=== PATIENT | female | born 1995 | race African-American/Black ===

== ENCOUNTER 2016-11-24 11:50 | Emergency (ER) | payer MEDICAID ==
[~2016-11-24] VITALS: Ht 162.6 cm; Wt 74.8 kg
== END 2016-11-24 14:05 | disposition left against medical advice (07) ==
LOC: CED 11:50
DX: Z53.21 Procedure and treatment not carried out due to patient leaving prior to being seen by health care provider (principal)

== ENCOUNTER 2016-11-24 19:58 | Emergency (ER) | payer MEDICAID ==
[~2016-11-24] VITALS: Ht 165.1 cm; Wt 54.4 kg
== END 2016-11-24 20:38 | disposition left against medical advice (07) ==
LOC: CED 19:58
DX: Z53.21 Procedure and treatment not carried out due to patient leaving prior to being seen by health care provider (principal)